=== PATIENT | male | born 1945 | race Caucasian/White ===

== ENCOUNTER 2017-06-14 13:13 | Emergency (ER) | payer OTHER, BC ==
[~2017-06-14] VITALS: Ht 188 cm; Wt 92.0 kg
[~2017-06-14 13:13] MED LIST: ATOR-24 PO; LISI-461 PO; SNM/25100 PO; TAMS0.4C38 PO
[2017-06-14 13:24] VITALS: TEMP 36.6; Ht 188 cm; Wt 92.0 kg
--- NOTE | 2017-06-14 14:54 | EMERGENCY ROOM VISIT NOTE ---
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 He states that he landed on his right knee. The patient denies any other injuries besides their knee. The patient reports swelling but denies bruising. There is pain over the patella. They rate the pain as mild and 5/ 10. The patient states they are able to walk on it with some pain. No numbness or tingling. No previous injuries to this knee. No ankle, foot or hip pain. REVIEW OF SYSTEMS: A 6 system review of systems was completed with positives and pertinent negatives listed in the HPI. ALLERGIES: No known drug allergies MEDICATIONS: See nursing notes PMH: Hypertension, hyperlipidemia SOCIAL HISTORY: The patient lives locally. He does not smoke PHYSICAL EXAM: Vital Signs: Reviewed Nurse's notes, vital signs stable. GENERAL : 71-year-old male, no acute distress, but appears in pain, well-developed, well -nourished. MENTAL STATUS: Alert, oriented to person place and time, and cooperative. MUSCULOSKELETAL: There is a superficial, nonbleeding abrasion to the anterior right knee. The right knee is minimally swollen. There is no ecchymosis. There is minimal joint effusion present. The patient is tender diffusely over the knee. There is no joint line tenderness. The patella does not subluxate. Range of motion is intact. Strength of the quads and hamstrings is 5/5. Sánchez's is negative. Desean's and Anterior Drawer tests are negative for obvious laxity. There is no obvious laxity with varus and valgus stressing. The foot and toes are warm and well-perfused. Dorsalis pedis pulse 2+. Sensation to pain and light touch is intact. Capillary refill less than 2 seconds. EMERGENCY DEPARTMENT COURSE: I examined the patient. X-rays of the right knee were reviewed by myself and read by radiology and reveal osteoarthritis and effusion but no fracture. The patient did not tolerate an immobilizer and was placed in an PADMINI wrap. He requested pain medication and was given a small prescription for norco. The patient should follow with and employer approved Worker's Compensation orthopedic doctor for further evaluation and management. He should return with worsening symptoms. Blood Pressure Screening: Patient was found to have a slightly elevated blood pressure due to circumstances. I do not believe that the patient requires hypertension monitoring. Medication Reconciliation: I attest that I have personally reviewed the patient' s current medication list. The patient was discharged home in good condition. The patient was also seen and examined by who agrees with the assessment and treatment plan. RIGHT KNEE 3 VIEWS HISTORY: 71 years-old Male acute right-sided knee pain status post fall. COMPARISON: None available TECHNIQUE: 3 views of the right knee. FINDINGS: Moderate to large right knee joint effusion is noted with increased density. Severe medial and patellofemoral osteoarthritis is noted with moderate to severe lateral compartment disease. Chondrocalcinosis is noted in the patellofemoral joint. There is no acute fracture or dislocation identified. Vascular calcifications are noted. IMPRESSION: 1. Moderate to large dense knee joint effusion without acute fracture or dislocation identified. 2. Severe medial and patellofemoral compartment osteoarthritis with patellofemoral chondrocalcinosis. 3. Peripheral vascular disease. Current/Historical Medications Scheduled Atorvastatin (Lipitor), 40 MG PO DAILY Levodopa/Carbidopa (Sinemet 25MG/100MG), 1 TAB PO TID Lisinopril (Zestril), 10 MG PO DAILY Scheduled PRN Hydrocodone/Acetaminophen 5MG/325MG (Franklin 5MG/325MG), 1 TABLET PO Q6 PRN for Pain Allergies Coded Allergies: No Known Allergies (Unverified , 06/14/17) Vital Signs Date Time Temp Pulse Resp B/P (MAP) Pulse Ox O2 Delivery O2 Flow Rate FiO2 06/14/17 15:38 73 16 161/93 98 Room Air 06/14/17 13:24 36.6 88 18 136/73 95 Room Air Departure Information Impression Primary Impression: Knee injury Additional Impressions: Osteoarthritis Work related injury Dispostion Home / Self-Care Condition GOOD Prescriptions Hydrocodone/Acetaminophen 5MG/325MG (Franklin 5MG/325MG) Tab 1 TABLET PO Q6 Y for Pain, #12 TAB For Initial Treatment Prov: Traci Montero PA-C 06/14/17 Referrals No Doctor, Assigned (PCP) Gabriel Mitchell MD Forms HOME CARE DOCUMENTATION FORM, IMPORTANT VISIT INFORMATION, Work Instructions Patient Instructions ED Meniscal Injury Knee Poss, My [facility] Additional Instructions Motrin 600 mg every 8 hours for moderate pain Franklin 1 tablet every 6 hours if needed for worse pain. Do not drink or drive while taking Franklin and do not take with Tylenol. Wear the brace when up and about. Contact and employer approved Worker's Compensation orthopedic doctor for further evaluation and management. Return with worsening symptoms Work Instructions Return To Work: 2 days Additional Work Instructions: Limited use of the right leg until cleared by orthopedics Problem Qualifiers Primary Impression: Knee injury Encounter type: initial encounter Laterality: right Qualified Codes: S89.91XA - Unspecified injury of right lower leg, initial encounter Additional Impressions: Osteoarthritis Osteoarthritis location: knee
--- NOTE | 2017-06-14 15:03 | DIAGNOSTIC IMAGING REPORT ---
RIGHT KNEE 3 VIEWS HISTORY: 71 years-old Male acute right-sided knee pain status post fall. COMPARISON: None available TECHNIQUE: 3 views of the right knee. FINDINGS: Moderate to large right knee joint effusion is noted with increased density. Severe medial and patellofemoral osteoarthritis is noted with moderate to severe lateral compartment disease. Chondrocalcinosis is noted in the patellofemoral joint. There is no acute fracture or dislocation identified. Vascular calcifications are noted. IMPRESSION: 1. Moderate to large dense knee joint effusion without acute fracture or dislocation identified. 2. Severe medial and patellofemoral compartment osteoarthritis with patellofemoral chondrocalcinosis. 3. Peripheral vascular disease. The above report was generated using voice recognition software. It may contain grammatical, syntax or spelling errors. Electronically signed by: Tahir Whalen M.D. 06/14/2017 3:01 PM Dictated Date/Time: 06/14/2017 2:58 PM
[2017-06-14] MEDS ORDERED: HYDR-5688 PO (15:23)
[2017-06-14 15:38] VITALS: BP 161/93; PULSE 73; O2SAT 98
--- NOTE | 2017-06-14 15:39 | EMERGENCY ROOM VISIT NOTE ---
ED Visit Note First contact with patient: 14:43 This Patient was discussed with the physician starch treating assistant, Rossy Montero PA-C. The pertinent historical and physical exam findings were confirmed. I agree with the studies ordered and with the interpretations of these studies. I agree with the disposition and care plan.
== END 2017-06-14 16:03 | disposition home or self-care (01) ==
LOC: C.EDB 13:13 → C.EDD 16:03
DX: S89.91XA Unspecified injury of right lower leg, initial encounter (principal); W01.0XXA Fall on same level from slipping, tripping and stumbling without subsequent striking against object, initial encounter; Y92.89 Other specified places as the place of occurrence of the external cause; I10 Essential (primary) hypertension; E78.5 Hyperlipidemia, unspecified; M19.90 Unspecified osteoarthritis, unspecified site; Z79.899 Other long term (current) drug therapy

== ENCOUNTER 2018-05-30 14:54 | Inpatient (IN) | payer OTHER, BC ==
[~2018-05-30] VITALS: Ht 190.5 cm; Wt 89.6 kg
[~2018-05-30 14:54] MED LIST changes: -TAMS0.4C38 PO
[2018-05-30] MEDS ORDERED: DIPHTHERIA/TETANUS/PERTUSSIS 0.5 ML SYR/VIAL IM. ONE (15:45)
[2018-05-30] MEDS ORDERED: OPTIRAY 320 IV PRN (15:45)
[2018-05-30 15:46] LABS: ISTAT CREATININE 1.1 mg/dl (0.6-1.3); ISTAT IONIZED CALCIUM 1.13 mmol/l (1.12-1.32); ISTAT POTASSIUM 4.1 mEq/L (3.3-5.0)
[2018-05-30 15:58] LABS: BASO % 0.1 %; BASO ABS # 0.01 K/uL (0-0.2); EOS ABS # 0.16 K/uL (0-0.5); HEMATOCRIT 35.6 % (42-52); HEMOGLOBIN 11.5 g/dL (14.0-18.0); IG# 0.16 K/uL (0.00-0.02); LYMPH % 15.6 %; LYMPH ABS # 1.25 K/uL (1.2-3.4); MEAN CELL VOLUME 88.3 fL (80-100); MEAN CORPUSCULAR HEMOGLOBIN 28.5 pg (25-34); MEAN CORPUSCULAR HGB CONC 32.3 g/dl (32-36); MEAN PLATELET VOLUME 11.8 fL (7.4-10.4); MONO % 3.9 %; MONO ABS # 0.31 K/uL (0.11-0.59); NEUT % 76.4 %; NEUT ABS # 6.13 K/uL (1.4-6.5); PLATELET COUNT 163 K/uL (130-400); RED CELL DISTRIBUTION WIDTH CV 14.7 % (11.5-14.5); RED CELL DISTRIBUTION WIDTH SD 47.6 fL (36.4-46.3); WHITE BLOOD COUNT 8.02 K/uL (4.8-10.8)
[2018-05-30 16:04] LABS: INR 1.1 (0.9-1.1); PTT PATIENT 26.1 SECONDS (21.0-31.0)
[2018-05-30 16:13] LABS: ALBUMIN 3.3 gm/dl (3.4-5.0); ALKALINE PHOSPHATASE 97 U/L (45-117); ALT/SGPT 14 U/L (12-78); AST/SGOT 25 U/L (15-37); BLOOD UREA NITROGEN 30 mg/dl (7-18); CARBON DIOXIDE 23 mmol/L (21-32); CKMB 3.9 ng/ml (0.5-3.6); CREATININE 1.17 mg/dl (0.60-1.40); GLUCOSE 162 mg/dl (70-99); SODIUM 141 mmol/L (136-145)
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
--- NOTE | 2018-05-30 16:57 | DIAGNOSTIC IMAGING REPORT ---
CT (CHEST) THORAX WITH CT DOSE: HISTORY: Trauma. Pain. Trauma TECHNIQUE: Multiaxial CT images of the chest were performed following the intravenous administration of contrast. A dose lowering technique was utilized adhering to the principles of ALARA. COMPARISON: None. FINDINGS: The lungs are clear. The mediastinal vascular structures are within normal limits. No mediastinal or hilar lymphadenopathy. No pleural effusion or pneumothorax. Limited views of the upper abdomen demonstrate a normal liver and spleen. IMPRESSION: . 1. Slightly depressed fracture superior sternum. 2. Study is otherwise negative. The above report was generated using voice recognition software. It may contain grammatical, syntax or spelling errors. Electronically signed by: Stanislav Elias M.D. 05/30/2018 4:56 PM Dictated Date/Time: 05/30/2018 4:53 PM
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
[2018-05-30] MEDS ORDERED: RASA1TAB4 PO (17:21)
[2018-05-30] MEDS ORDERED: TAMS0.4C38 PO (17:21)
[2018-05-30] MEDS ORDERED: MoRPHine SULFATE 4 MG/ML 1 ML CARP\\VIAL IV STA (18:26)
[2018-05-30] MEDS ORDERED: ONDANSETRON INJ 2 MG/ML 2 ML VIAL IV STA (18:26)
[2018-05-30] MEDS ORDERED: MoRPHine SULFATE 2 MG/ML CARP ONE (18:40)
[2018-05-30] MEDS ORDERED: IV FLUIDS COMPLETED PRN (18:45)
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
[2018-05-30] MEDS ORDERED: SODIUM CHLORIDE 0.9% 1000ML 1,000 ML IV SCH (19:20)
[2018-05-30] MEDS ORDERED: GABAPENTIN 600 MG TAB PO SCH (19:30)
[2018-05-30 19:55] VITALS: BP 124/70; PULSE 91; TEMP 37.1; O2SAT 94; Ht 190.5 cm; Wt 89.6 kg
[2018-05-30] MEDS ORDERED: LORAZEPAM 2 MG/ML 1 ML VIAL IV PRN (20:00)
[2018-05-30] MEDS ORDERED: MoRPHine SULFATE 2 MG/ML CARP IV PRN (20:00)
[2018-05-30] MEDS ORDERED: LORAZEPAM 0.5 MG TAB PO PRN (20:00)
[2018-05-30] MEDS ORDERED: GABAPENTIN 1200MG LOADING DOSE PO ONE (20:00)
--- NOTE | 2018-05-30 20:15 | Progress Note ---
Progress Note Date of Service May 30, 2018. Progress Note ATTENDING ADDENDUM care coordinated with TATI Kinney. notes please refer to her notes for full details, I agree with her notes patient seen and examined, records reviewed by myself as well on exam, patient seen resting in bed, comfortable reports pain on the right hip/buttock area, also has mild sternal pain otherwise, denies other pain no chest pain, dyspnea, palpitations, dizziness no abdominal pain no other symptoms VS noted and reviewed oriented x 2 , not in distress, speaks in sentences with no effort nor accessory muscle use normal rate, regular rhythm, no murmurs clear breath sounds bilaterally, no rales/wheezes non distended, soft, nontender no bipedal edema, erythema, warmth no neuro deficits Hg 11.[address] abdomen: polypoid mass in the bladder ASSESSMENT/PLAN> SYNCOPE R/O PROGRESSION OF AORTIC STENOSIS R/O ARRHYTHMIA R/O SEIZURES R/O CVA Echo, telemetry, EEG, MRI Brain ordered MASSIVE HEMATURIA POLYPOID BLADDER MASS H&H q6h discussed case with Dr. Steel who will evaluate the patient this evening, appreciate the recommendations R/O RIGHT HIP FRACTURE, LEFT RADIAL FRACTURE CT ordered other diagnoses and plan of care as per TATI Kinney notes Román Grewal MD
[2018-05-30 20:19] LABS: HEMATOCRIT 36.1 % (42-52); HEMOGLOBIN 11.8 g/dL (14.0-18.0)
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
--- NOTE | 2018-05-30 21:05 | DIAGNOSTIC IMAGING REPORT ---
R LOWER EXTREMITY WITHOUT CLINICAL HISTORY: 72 years-old Male presenting with r/o femoral fracture. TECHNIQUE: Multidetector CT of the right femur was performed without the use of intravenous contrast. IV contrast: None. A dose lowering technique was used consistent with the principles of ALARA (as low as reasonably achievable). COMPARISON: Plain radiographs of the right hip performed earlier today. CT DOSE (mGy.cm): The estimated cumulative dose is 895.24 mGy.cm. FINDINGS: Travel Consultant topogram: Tricompartmental degenerative changes of the knees. Excreted contrast in the urinary bladder. A Fishman catheter is noted in the urinary bladder. Prostatomegaly evident. Polypoid bladder mass again noted. Osteophytosis at the right hip. Joint space is largely preserved. No deformity of the femoral head. The right femoral neck is intact without evidence of fracture. The remainder of the femur is also intact. Advanced tricompartmental degenerative changes of the right knee. Significant joint space loss is also noted in addition to exuberant osteophytosis. Knee joint effusion is present. Soft tissues demonstrate atherosclerosis. IMPRESSION: 1. No acute osseous injury of the right femur right femoral neck. 2. Please see separately dictated CT of the abdomen and pelvis for findings related to the bilateral sacral alar fractures, which are not included in the field of view of the current imaging. 3. Advanced tricompartmental degenerative changes of the right knee. 4. Mild degenerative changes of the right hip. 5. Redemonstration of the suspicious polypoid bladder mass. Electronically signed by: Benedict Myers M.D. 05/30/2018 9:03 PM Dictated Date/Time: 05/30/2018 8:59 PM
[2018-05-30] MEDS: CARBIDOPA/LEVODOPA 25/100MG TAB PO SCH (21:27)
[2018-05-30] MEDS: D5W AND NSS 1,000 ML IV SCH (21:29)
[2018-05-30] MEDS: ACETAMINOPHEN 325 MG TAB PO PRN (21:35)
[2018-05-30] MEDS ORDERED: MoRPHine SULFATE 2 MG/ML CARP IV ONE (21:57)
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
--- NOTE | 2018-05-30 22:19 | DIAGNOSTIC IMAGING REPORT ---
L UPPER EXTREMITY WITHOUT CLINICAL HISTORY: 72 years-old Male presenting with RECOMMEND CT OF LEFT RADIAL NECK PER X-RAY REPORT. TECHNIQUE: Multidetector CT of the elbow was performed without the use of intravenous contrast. IV contrast: None. A dose lowering technique was used consistent with the principles of ALARA (as low as reasonably achievable). COMPARISON: Plain radiographs of elbow performed earlier today. CT DOSE (mGy.cm): The estimated cumulative dose is 895.24. FINDINGS: Play Therapist topogram: Unremarkable. Osteophytosis involving both the medial and lateral aspects of the elbow joint, which is congruent. There is also joint space loss in the radiocapitellar articulation. Degenerative changes likely account for irregularity of the radial neck. No convincing evidence of a fracture plane. No elbow joint effusion. Multiple loose bodies evident in the olecranon fossa, further evidence of degenerative change. IMPRESSION: 1. Advanced degenerative changes of the elbow joint, including the presence of loose bodies posteriorly. 2. No acute osseous injury. Electronically signed by: Benedict Myers M.D. 05/30/2018 10:18 PM Dictated Date/Time: 05/30/2018 10:16 PM
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
[2018-05-30 23:16] VITALS: O2SAT 94
[2018-05-30 23:43] VITALS: BP 121/72; PULSE 84; TEMP 36.7; O2SAT 92
[2018-05-31] VITALS (9 sets, daily range): BP systolic 95–120; BP diastolic 48–65; PULSE 74–91; TEMP 36.6–37.6; O2SAT 91–97
[2018-05-31 02:02] LABS: HEMOGLOBIN 10.6 g/dL (14.0-18.0)
[2018-05-31] MEDS: GABAPENTIN 600MG Q6H DOSE PO SCH ×2 (03:24→09:56)
[2018-05-31] MEDS ORDERED: GABAPENTIN 600MG Q6H DOSE PO SCH (06:00)
[2018-05-31] MEDS ORDERED: CIPROFLOXACIN 400MG / 200ML D5W IV SCH (06:00)
[2018-05-31] MEDS ORDERED: PROCHLORPERAZINE INJ 5 MG in SYRINGE 4 ML IV PRN (06:30)
--- NOTE | 2018-05-31 07:20 | DIAGNOSTIC IMAGING REPORT ---
CAROTID ARTERY ULTRASOUND CLINICAL HISTORY: Syncope. COMPARISON STUDY: None. TECHNIQUE: Real-time, grayscale, and color Doppler sonography of the carotid and vertebral arteries was performed. Images were viewed in the transverse and longitudinal planes. FINDINGS: There is moderate atherosclerotic plaque. Velocity measurements are listed below. COMMON CAROTID PEAK SYSTOLIC VELOCITY (CM/S): RIGHT 121 LEFT 102 ICA PEAK SYSTOLIC VELOCITY (CM/S): RIGHT 60 LEFT 80 Systolic ratios between the internal to common carotid arteries are normal. Antegrade flow is seen in the vertebral arteries. The external carotid arteries are patent. Blood pressure in the right arm measured 128/71. Blood pressure in the left arm measured 118/77. IMPRESSION: No evidence for a hemodynamically significant stenosis. Electronically signed by: Fan Chambers M.D. 05/31/2018 7:19 AM Dictated Date/Time: 05/31/2018 7:18 AM
[2018-05-31] MEDS: MoRPHine SULFATE 4 MG/ML 1 ML CARP\\VIAL IV PRN ×2 (07:30→14:00)
[2018-05-31 08:04] LABS: BASO % 0.1 %; BASO ABS # 0.01 K/uL (0-0.2); EOS % 0.3 %; EOS ABS # 0.02 K/uL (0-0.5); HEMATOCRIT 32.7 % (42-52); HEMOGLOBIN 10.9 g/dL (14.0-18.0); IG# 0.02 K/uL (0.00-0.02); LYMPH % 10.3 %; MEAN CELL VOLUME 88.1 fL (80-100); MEAN CORPUSCULAR HEMOGLOBIN 29.4 pg (25-34); MEAN CORPUSCULAR HGB CONC 33.3 g/dl (32-36); MEAN PLATELET VOLUME 10.8 fL (7.4-10.4); MONO % 8.2 %; MONO ABS # 0.64 K/uL (0.11-0.59); NEUT % 80.8 %; NEUT ABS # 6.29 K/uL (1.4-6.5); PLATELET COUNT 128 K/uL (130-400); RED CELL DISTRIBUTION WIDTH SD 48.5 fL (36.4-46.3); WHITE BLOOD COUNT 7.78 K/uL (4.8-10.8)
[2018-05-31 08:35] LABS: CALCIUM 7.9 mg/dl (8.5-10.1); CREATININE 0.93 mg/dl (0.60-1.40); POTASSIUM 4.2 mmol/L (3.5-5.1); TOTAL PROTEIN 5.6 gm/dl (6.4-8.2)
[2018-05-31] MEDS: TAMSULOSIN HCL 0.4 MG CAP PO SCH (08:40)
[2018-05-31] MEDS: CARBIDOPA/LEVODOPA 25/100MG TAB PO SCH ×4 (08:40→21:14)
[2018-05-31] MEDS: ATORVASTATIN 40 MG TAB PO SCH (08:40)
[2018-05-31] MEDS: D5W AND NSS 1,000 ML IV SCH (08:41)
--- NOTE | 2018-05-31 08:54 | ECHOCARDIOGRAM REPORT ---
*NOTICE TO RECEIVING LIBERTARIAN AGENCY This information is strictly Confidential and protected under [place] law. [place] law prohibits you from making any further disclosure of this information unless further disclosure is expressly permitted by the written consent of the person to whom it pertains or is authorized by law. A general authorization for the release of medical or other information is not sufficient for this purpose. Hospital accepts no responsibility if the information is made available to any other person, INCLUDING THE PATIENT. Interpretation Summary * Name: LAKEISHA HUTTON Study Date: 05/31/2018 07:00 AM BP: 107/61 mmHg * Patient Location: C.2T\S\S239\S\2 HR: 81 * : 1945 (M/d/yyy) Gender: Male Height: 75 in * Age: 72 yrs Ethnicity: [place] Weight: 199 lb * Ordering Physician: Alisha Galarza * Referring Physician: Self, Referred * Performed By: Traci Talbot RDCS * * Reason For Study: SYNCOPE * BSA: 2.2 m2 * The study was technically limited. * There is no comparison study available. * -- Conclusions -- * Ejection Fraction = 65-70%. * There is mild concentric left ventricular hypertrophy. * The aortic valve is not well visualized. * The aortic valve is moderately calcified. * Moderate valvular aortic stenosis. Procedure Details * A contrast injection of Definity was performed to improve assessment of LV function. * Contrast was injected into an intravenous site in the left arm. * One vial of Definity ultrasound contrast was diluted in normal saline to a total volume of 10 ml. A total of '2' ml of solution was administered during imaging. * Lot # [id number] of Definity utilized for procedure. * Expiration date MAY 12. * The attending nurse who injected the contrast agent was ARETHA Fernandez RN. * A complete two-dimensional transthoracic echocardiogram was performed (2D, M-mode, Doppler and color flow Doppler). Left Ventricle * The left ventricle is normal in size. * The left ventricular apex is not well visualized. * There is mild concentric left ventricular hypertrophy. * Left ventricular systolic function is normal. * Ejection Fraction = 65-70%. * The left ventricular wall motion is normal. Right Ventricle * The right ventricle is normal size. * The right ventricular systolic function is normal as assessed by tricuspid annular plane systolic excursion (TAPSE) (normal >1.5 cm). Atria * The left atrial size is normal. * Right atrial size is normal. * There is no evidence of atrial septal defect, but resolution does not allow assessment for a patent foramen ovale. Mitral Valve * There is moderate mitral annular calcification. * There is no mitral valve stenosis. * Significant mitral regurgitation is absent. Tricuspid Valve * The tricuspid valve is normal. * There is no tricuspid stenosis. * There is trace tricuspid regurgitation. * The estimated systolic pulmonary arterial pressure is 34 mmHg. * Doppler findings do not suggest pulmonary hypertension. Aortic Valve * The aortic valve is not well visualized. * The aortic valve is moderately calcified. * Moderate valvular aortic stenosis. * There is no significant aortic regurgitation. Pulmonic Valve * The pulmonary valve is not well seen, but the Doppler examination is normal without significant regurgitation or stenosis. Great Vessels * The aortic root is not well visualized. Pericardium/Pleural * There is no pericardial effusion. Great Vessels * Normal inferior vena cava diameter and respiratory variation suggests normal central venous pressure. Left Ventricular Diastolic Function * Grade I diastolic dysfunction, (abnormal relaxation pattern). MMode 2D Measurements and Calculations IVSd 1.2 cm IVSs 1.8 cm LVIDd 4.9 cm LVIDs 3.1 cm LVPWd 1.2 cm LVPWs 1.7 cm IVS/LVPW 0.94 FS 36.8 % EDV(Teich) 113.8 ml ESV(Teich) 38.1 ml EF(Teich) 66.5 % EDV(cubed) 118.9 ml ESV(cubed) 30.0 ml EF(cubed) 74.8 % % IVS thick 54.8 % % LVPW thick 37.4 % LV mass(C)d 230.2 grams LV mass(C)dI 105.1 grams/m\S\2 LV mass(C)s 218.6 grams LV mass(C)sI 99.8 grams/m\S\2 SV(Teich) 75.6 ml SI(Teich) 34.5 ml/m\S\2 SV(cubed) 88.9 ml SI(cubed) 40.6 ml/m\S\2 Ao root diam 3.4 cm Ao root area 9.2 cm\S\2 LA dimension 3.9 cm LA/Ao 1.1 LVOT diam 2.0 cm LVOT area 3.1 cm\S\2 LVAd ap4 38.2 cm\S\2 LVLd ap4 9.7 cm EDV(MOD-sp4) 124.4 ml EDV(sp4-el) 127.6 ml LVAs ap4 20.5 cm\S\2 LVLs ap4 7.9 cm ESV(MOD-sp4) 46.8 ml ESV(sp4-el) 45.2 ml EF(MOD-sp4) 62.4 % EF(sp4-el) 64.6 % LVAd ap2 35.0 cm\S\2 LVLd ap2 9.0 cm EDV(MOD-sp2) 108.6 ml EDV(sp2-el) 115.3 ml LVAs ap2 18.7 cm\S\2 LVLs ap2 7.1 cm ESV(MOD-sp2) 42.3 ml ESV(sp2-el) 41.5 ml EF(MOD-sp2) 61.0 % EF(sp2-el) 64.0 % LVLd %diff -7.33 % EDV(MOD-bp) 117.2 ml LVLs %diff -10.77 % ESV(MOD-bp) 45.0 ml EF(MOD-bp) 61.6 % SV(MOD-sp4) 77.6 ml SI(MOD-sp4) 35.5 ml/m\S\2 SV(MOD-sp2) 66.2 ml SI(MOD-sp2) 30.2 ml/m\S\2 SV(MOD-bp) 72.2 ml SI(MOD-bp) 33.0 ml/m\S\2 SV(sp4-el) 82.4 ml SI(sp4-el) 37.6 ml/m\S\2 SV(sp2-el) 73.7 ml SI(sp2-el) 33.7 ml/m\S\2 Doppler Measurements and Calculations MV E max danita 92.2 cm/sec MV A max danita 132.4 cm/sec MV E/A 0.70 MV dec time 0.25 sec Ao V2 max 345.5 cm/sec Ao max PG 47.8 mmHg Ao max PG (full) 42.2 mmHg Ao V2 mean 236.0 cm/sec Ao mean PG 25.3 mmHg Ao mean PG (full) 22.2 mmHg Ao V2 VTI 69.5 cm ABDULAZIZ(I,A) 1.1 cm\S\2 ABDULAZIZ(I,D) 1.1 cm\S\2 ABDULAZIZ(V,A) 1.1 cm\S\2 ABDULAZIZ(V,D) 1.1 cm\S\2 LV V1 max PG 5.6 mmHg LV V1 mean PG 3.1 mmHg LV V1 max 118.4 cm/sec LV V1 mean 81.0 cm/sec LV V1 VTI 25.5 cm SV(Ao) 641.3 ml SI(Ao) 292.9 ml/m\S\2 SV(LVOT) 78.2 ml SI(LVOT) 35.7 ml/m\S\2 TR max danita 281.0 cm/sec
[2018-05-31] MEDS ORDERED: LISINOPRIL 10 MG TAB PO SCH (09:00)
[2018-05-31] MEDS ORDERED: METOPROLOL SUCC 25MG EXT REL TAB PO ONE (11:00)
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
--- NOTE | 2018-05-31 13:46 | Urology Progress Note ---
Progress Note Date of Service May 31, 2018. Subjective Pt evaluation today including: conversation w/ patient, conversation w/ family , physical exam, lab review, review of studies, conversation w/ [employer] iam consultant Pain: ongoing back pain Voiding: yen catheter in place Pt with significant hematuria with clot Spoke with hospitalist and cleared for Turbt by cardiology and ortho says ok for dorsal lithotomy position Pt with ct that shows presumed bladder tumor Objective Vital Signs Date Time Temp Pulse Resp B/P (MAP) Pulse Ox O2 Delivery O2 Flow Rate FiO2 05/31/18 11:27 36.8 74 18 120/65 (83) 97 05/31/18 08:00 93 Room Air 05/31/18 06:44 36.8 79 16 107/61 (76) 93 Room Air 05/31/18 03:07 36.6 83 16 107/61 (76) 94 Room Air 05/30/18 23:43 36.7 84 18 121/72 (88) 92 Room Air 05/30/18 23:16 94 Room Air 05/30/18 19:55 37.1 91 16 124/70 94 Room Air 05/30/18 18:27 87 19 151/79 98 Room Air 05/30/18 16:56 92 21 173/93 94 Room Air 05/30/18 16:32 94 Room Air 05/30/18 16:03 89 19 160/89 95 Room Air 05/30/18 15:14 36.7 94 18 147/85 97 Room Air 05/30/18 15:09 100 05/30/18 15:06 97 Room Air Laboratory Results Last 24 Hours Test 05/30/18 14:10 05/30/18 15:15 05/30/18 15:36 05/30/18 15:39 White Blood Count 8.02 K/uL Red Blood Count 4.03 M/uL Hemoglobin 11.5 g/dL Hematocrit 35.6 % Mean Corpuscular Volume 88.3 fL Mean Corpuscular Hemoglobin 28.5 pg Mean Corpuscular Hemoglobin Concent 32.3 g/dl Platelet Count 163 K/uL Mean Platelet Volume 11.8 fL Neutrophils (%) (Auto) 76.4 % Lymphocytes (%) (Auto) 15.6 % Monocytes (%) (Auto) 3.9 % Eosinophils (%) (Auto) 2.0 % Basophils (%) (Auto) 0.1 % Neutrophils # (Auto) 6.13 K/uL Lymphocytes # (Auto) 1.25 K/uL Monocytes # (Auto) 0.31 K/uL Eosinophils # (Auto) 0.16 K/uL Basophils # (Auto) 0.01 K/uL RDW Standard Deviation 47.6 fL RDW Coefficient of Variation 14.7 % Immature Granulocyte % (Auto) 2.0 % Immature Granulocyte # (Auto) 0.16 K/uL Prothrombin Time 11.2 SECONDS Prothromb Time International Ratio 1.1 Activated Partial Thromboplast Time 26.1 SECONDS Partial Thromboplastin Ratio 1.0 Sodium Level 141 mmol/L Potassium Level 4.0 mmol/L Chloride Level 110 mmol/L Carbon Dioxide Level 23 mmol/L Anion Gap 8.0 mmol/L 18.0 mmol/L Blood Urea Nitrogen 30 mg/dl Creatinine 1.17 mg/dl Est Creatinine Clear Calc Drug Dose 66.2 ml/min Estimated GFR () 70.8 Estimated GFR (Non- 61.1 BUN/Creatinine Ratio 25.2 Random Glucose 162 mg/dl Calcium Level 8.0 mg/dl Total Bilirubin 1.0 mg/dl Direct Bilirubin 0.2 mg/dl Aspartate Amino Transf (AST/SGOT) 25 U/L Alanine Aminotransferase (ALT/SGPT) 14 U/L Alkaline Phosphatase 97 U/L Total Creatine Kinase 262 U/L Creatine Kinase MB 3.9 ng/ml Creatine Kinase MB Ratio 1.5 Troponin I < 0.015 ng/ml Total Protein 6.0 gm/dl Albumin 3.3 gm/dl Urine Color RED Urine Appearance CLOUDY Urine pH 6.5 Urine Specific [place] 1.025 Urine Protein 3+ Urine Glucose (UA) NEG Urine Ketones TRACE Urine Occult Blood 3+ Urine Nitrite NEG Urine Bilirubin NEG Urine Urobilinogen NEG Urine Leukocyte Esterase NEG Urine RBC >30 /hpf Urine WBC 1-5 /hpf Urine Epithelial Cells 5-10 /lpf Urine Bacteria NEG Bedside Hemoglobin 11.9 g/dl Bedside Hematocrit 35 % Bedside Sodium 143 mEq/L Bedside Potassium 4.1 mEq/L Bedside Chloride 105 mEq/L Bedside Total CO2 25 mEq/l Bedside Blood Urea Nitrogen 28 mg/dl Bedside Creatinine 1.1 mg/dl Bedside Glucose (other) 109 mg/dl Bedside Ionized Calcium (Rosa) 1.13 mmol/l Bedside Glucose 106 mg/dl Test 05/30/18 20:01 05/31/18 01:51 05/31/18 07:52 Hemoglobin 11.8 g/dL 10.6 g/dL 10.9 g/dL Hematocrit 36.1 % 33.0 % 32.7 % Troponin I < 0.015 ng/ml 0.015 ng/ml White Blood Count 7.78 K/uL Red Blood Count 3.71 M/uL Mean Corpuscular Volume 88.1 fL Mean Corpuscular Hemoglobin 29.4 pg Mean Corpuscular Hemoglobin Concent 33.3 g/dl Platelet Count 128 K/uL Mean Platelet Volume 10.8 fL Neutrophils (%) (Auto) 80.8 % Lymphocytes (%) (Auto) 10.3 % Monocytes (%) (Auto) 8.2 % Eosinophils (%) (Auto) 0.3 % Basophils (%) (Auto) 0.1 % Neutrophils # (Auto) 6.29 K/uL Lymphocytes # (Auto) 0.80 K/uL Monocytes # (Auto) 0.64 K/uL Eosinophils # (Auto) 0.02 K/uL Basophils # (Auto) 0.01 K/uL RDW Standard Deviation 48.5 fL RDW Coefficient of Variation 15.0 % Immature Granulocyte % (Auto) 0.3 % Immature Granulocyte # (Auto) 0.02 K/uL Sodium Level 141 mmol/L Potassium Level 4.2 mmol/L Chloride Level 108 mmol/L Carbon Dioxide Level 27 mmol/L Anion Gap 6.0 mmol/L Blood Urea Nitrogen 21 mg/dl Creatinine 0.93 mg/dl Est Creatinine Clear Calc Drug Dose 83.3 ml/min Estimated GFR () 93.4 Estimated GFR (Non- 80.6 BUN/Creatinine Ratio 22.9 Random Glucose 123 mg/dl Calcium Level 7.9 mg/dl Total Bilirubin 1.9 mg/dl Aspartate Amino Transf (AST/SGOT) 26 U/L Alanine Aminotransferase (ALT/SGPT) 17 U/L Alkaline Phosphatase 64 U/L Total Protein 5.6 gm/dl Albumin 3.0 gm/dl Globulin 2.6 gm/dl Albumin/Globulin Ratio 1.2 Assessment and Plan given drop in hct and ongoing significant hematuria with clot do not see advantage to delaying cysto TURBT Discussed with Dr. Lee who agrees to do cysto clot evacuation and probable TURBT this pm consent obtained
[2018-05-31] MEDS ORDERED: ONDANSETRON INJ 2 MG/ML 2 ML VIAL ONE (14:18)
[2018-05-31] MEDS ORDERED: LIDOCAINE HCL 2% 2 ML VIAL (20MG/ML) ONE (14:18)
[2018-05-31] MEDS ORDERED: PROPOFOL IV EMULSION 10 MG/ML 20 ML VIAL ONE (14:18)
[2018-05-31] MEDS ORDERED: FENTANYL CITRATE INJ 50 MCG/1 ML 2 ML VIAL ONE (14:18)
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
--- NOTE | 2018-05-31 15:11 | History & Physical Bridge Note ---
H&P Re-Evaluation Bridge Note: I have examined the patient, reviewed the History & Physical and in the interval since the performance of the History & Physical I have noted the following changes of clinical significance: No changes noted
[2018-05-31] MEDS ORDERED: LACTATED RINGER'S 1000ML 1,000 ML IV SCH (15:15)
[2018-05-31] MEDS ORDERED: NURSING VERBAL MED ORDER ONE (15:15)
[2018-05-31] MEDS ORDERED: PHENYLEPHRINE HCL INJ 10 MG/ML VIAL ONE (16:16)
[2018-05-31] MEDS ORDERED: SODIUM CHLORIDE 0.9% INJ 10 ML VIAL ONE (16:16)
[2018-05-31] MEDS ORDERED: ONDANSETRON INJ 2 MG/ML 2 ML VIAL IV PRN (16:30)
[2018-05-31] MEDS ORDERED: ATROPINE SULFATE 0.1 MG/ML 5ML SYR IV PRN (16:30)
[2018-05-31] MEDS ORDERED: EpHEDrine SULFATE INJ 50 MG/ML AMP IV PRN (16:30)
[2018-05-31] MEDS ORDERED: FENTANYL CITRATE INJ 50 MCG/1 ML 2 ML VIAL IV PRN (16:30)
--- NOTE | 2018-05-31 16:31 | [facility] Operative Report ---
Operative Report Operative Date May 31, 2018. Pre-Operative Diagnosis Hematuria Post-Operative Diagnosis Bladder tumor Procedure(s) Performed Cystoscopy, TURBT large Surgeon Dr. 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 Upon arrival he received appropriate preoperative antibiotics in the form of ciprofloxacin. Adequate general anesthesia was achieved, the patient was placed dorsal lithotomy position where he was sterilely prepped and draped in standard fashion. I began the case with passing a 27 Macedonian resectoscope with 30 lens and visual drop machine operator. Inspection revealed no evidence of stricture disease other abnormalities of the urethra. He has a noticeably large prostate, but I was able to navigate beyond this into the bladder. Upon entering the bladder, became readily apparent that he had a significant amount of clot within the bladder. Irrigated him free of clot. After clearing the bladder, I was able to identify a large, papillary appearing bladder tumor arising from the left lateral wall. I had estimate this was 5 cm plus in dimension. As I inspected the lateral wall, it appears to have a smaller stalk to which it connects to the bladder. There was some active bleeding from the tumor itself. I exchanged the visual obturator for resecting element, choosing a loop electrode. Began to sequentially resect the tumor starting at the medial margin working my way laterally before completing it from lateral to medial. His care to avoid deep resection. After entirely freeing the bladder visible tumor, obtain meticulous hemostasis by point cauterizing areas at the base of the tumor. I irrigated all bladder tumor chips out of the bladder and passed them off the table as a specimen labeled bladder tumor. Obtain meticulous hemostasis before withdrawing the cystoscope. I did elect to place a 20 Macedonian Fishman catheter at the conclusion of the case, the patient was subsequently extubated and reversed from anesthesia and taken to the PACU in stable condition. I attest to the content of the Intraoperative Record and any orders documented therein. Any exceptions are noted below.
--- NOTE | 2018-05-31 17:16 | Anesthesiology Progress Note ---
Anesthesia Post Op Note Date & Time May 31, 2018 at 17:16 Vital Signs Pain Intensity: 0 Vital Signs Past 12 Hours Date Time Temp Pulse Resp B/P (MAP) Pulse Ox O2 Delivery O2 Flow Rate FiO2 05/31/18 17:03 83 16 93/53 95 05/31/18 17:03 83 16 05/31/18 17:02 36.8 85 16 93/53 (67) 95 Nasal Cannula 2 05/31/18 17:01 82/38 05/31/18 16:58 79 20 98 05/31/18 16:58 80 20 05/31/18 16:57 81 19 99 05/31/18 16:57 81 19 05/31/18 16:57 81 19 05/31/18 16:57 81 19 99 05/31/18 16:55 93/57 05/31/18 16:55 93/57 05/31/18 16:52 80 19 100 05/31/18 16:52 80 19 100 05/31/18 16:52 80 19 05/31/18 16:52 80 19 05/31/18 16:51 80 17 100 05/31/18 16:51 79 17 05/31/18 16:50 96/58 05/31/18 16:46 81 18 05/31/18 16:46 81 18 100 05/31/18 16:45 108/60 05/31/18 16:41 81 17 05/31/18 16:41 36.6 82 19 94/54 (71) 97 Oxymask 10 05/31/18 16:41 80 17 94/54 99 05/31/18 14:30 37.4 87 18 109/70 (83) 92 Room Air 05/31/18 11:27 36.8 74 18 120/65 (83) 97 05/31/18 08:00 93 Room Air 05/31/18 06:44 36.8 79 16 107/61 (76) 93 Room Air Notes Mental Status: alert / awake / arousable, participated in evaluation Pt Amnestic to Procedure: Yes Nausea / Vomiting: adequately controlled Pain: adequately controlled Airway Patency, RR, SpO2: stable & adequate BP & HR: stable & adequate Hydration State: stable & adequate Anesthetic Complications: no major complications apparent
[2018-05-31] MEDS: GABAPENTIN 600MG Q8H DOSE PO SCH (18:07)
[2018-05-31 19:38] LABS: HEMATOCRIT 33.1 % (42-52); HEMOGLOBIN 10.3 g/dL (14.0-18.0)
[2018-05-31] MEDS ORDERED: GABAPENTIN 600MG Q8H DOSE PO SCH (22:00)
[2018-05-31 22:20] LABS: HEMOGLOBIN 9.9 g/dL (14.0-18.0)
[2018-06-01] MEDS: D5W AND NSS 1,000 ML IV SCH ×2 (01:06→11:48)
[2018-06-01] MEDS: GABAPENTIN 600MG Q8H DOSE PO SCH ×2 (02:06→10:49)
[2018-06-01 03:22] VITALS: BP 100/56; PULSE 87; TEMP 37.7; O2SAT 94
[2018-06-01 07:21] VITALS: BP 100/55; PULSE 84; TEMP 37.9; O2SAT 94
[2018-06-01] MEDS: ACETAMINOPHEN 325 MG TAB PO PRN (07:43)
[2018-06-01] MEDS: METOPROLOL SUCC 25MG EXT REL TAB PO SCH (07:43)
[2018-06-01] MEDS: ATORVASTATIN 40 MG TAB PO SCH (07:43)
[2018-06-01] MEDS: CARBIDOPA/LEVODOPA 25/100MG TAB PO SCH ×4 (07:44→21:22)
[2018-06-01] MEDS: TAMSULOSIN HCL 0.4 MG CAP PO SCH (07:44)
--- NOTE | 2018-06-01 08:07 | Anesthesiology Progress Note ---
Anesthesia Post Op Note Date & Time Jun 01, 2018 at 08:06 Vital Signs Pain Intensity: 0 Vital Signs Past 12 Hours Date Time Temp Pulse Resp B/P (MAP) Pulse Ox O2 Delivery O2 Flow Rate FiO2 06/01/18 07:21 37.9 84 19 100/55 (70) 94 Nasal Cannula 1.0 06/01/18 03:22 37.7 87 21 100/56 (71) 94 Room Air 05/31/18 23:12 37.6 90 17 100/48 (65) 92 Room Air 05/31/18 20:20 37.0 85 18 95/52 (66) 95 Room Air Notes Mental Status: alert / awake / arousable, participated in evaluation Pt Amnestic to Procedure: Yes Nausea / Vomiting: adequately controlled Pain: adequately controlled Airway Patency, RR, SpO2: stable & adequate BP & HR: stable & adequate Hydration State: stable & adequate Anesthetic Complications: no major complications apparent
[2018-06-01 08:15] LABS: BASO % 0.1 %; BASO ABS # 0.01 K/uL (0-0.2); EOS % 0.9 %; EOS ABS # 0.07 K/uL (0-0.5); HEMATOCRIT 30.3 % (42-52); HEMOGLOBIN 9.8 g/dL (14.0-18.0); IG# 0.03 K/uL (0.00-0.02); LYMPH % 10.4 %; LYMPH ABS # 0.82 K/uL (1.2-3.4); MEAN CELL VOLUME 88.9 fL (80-100); MEAN CORPUSCULAR HEMOGLOBIN 28.7 pg (25-34); MEAN CORPUSCULAR HGB CONC 32.3 g/dl (32-36); MEAN PLATELET VOLUME 10.2 fL (7.4-10.4); MONO % 9.3 %; MONO ABS # 0.73 K/uL (0.11-0.59); NEUT % 78.9 %; NEUT ABS # 6.23 K/uL (1.4-6.5); PLATELET COUNT 103 K/uL (130-400); RED CELL DISTRIBUTION WIDTH CV 14.9 % (11.5-14.5); RED CELL DISTRIBUTION WIDTH SD 48.6 fL (36.4-46.3); WHITE BLOOD COUNT 7.89 K/uL (4.8-10.8)
[2018-06-01 08:44] LABS: CALCIUM 7.6 mg/dl (8.5-10.1); CREATININE 1.27 mg/dl (0.60-1.40); POTASSIUM 4.1 mmol/L (3.5-5.1)
[2018-06-01] MEDS ORDERED: LISINOPRIL 5 MG TAB PO SCH (09:00)
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
[2018-06-01 11:39] VITALS: BP 91/51; PULSE 83; TEMP 37.5; O2SAT 95
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
[2018-06-01 15:24] VITALS: BP 108/61; PULSE 83; TEMP 36.8; O2SAT 94
[2018-06-01] MEDS: OXYCODONE/ACETAMINOPHEN 5-325 TAB PO PRN (16:51)
[2018-06-01 19:25] VITALS: BP 102/62; PULSE 97; TEMP 37.4; O2SAT 92
[2018-06-01] MEDS: GABAPENTIN 600MG Q12H DOSE PO SCH (21:22)
[2018-06-01] MEDS: MoRPHine SULFATE 4 MG/ML 1 ML CARP\\VIAL IV PRN (21:25)
[2018-06-01 23:29] VITALS: BP 101/59; PULSE 83; TEMP 37.1; O2SAT 92
[2018-06-02] MEDS ORDERED: GABAPENTIN 600MG Q12H DOSE PO SCH
[2018-06-02] MEDS: D5W AND NSS 1,000 ML IV SCH ×2 (01:02→15:13)
[2018-06-02 04:08] VITALS: BP 132/72; PULSE 87; TEMP 37.7; O2SAT 91
[2018-06-02] MEDS: OXYCODONE/ACETAMINOPHEN 5-325 TAB PO PRN ×4 (04:30→22:03)
[2018-06-02 06:05] LABS: BASO % 0.1 %; BASO ABS # 0.01 K/uL (0-0.2); EOS % 2.1 %; EOS ABS # 0.17 K/uL (0-0.5); HEMATOCRIT 28.5 % (42-52); HEMOGLOBIN 9.2 g/dL (14.0-18.0); IG# 0.03 K/uL (0.00-0.02); LYMPH % 8.5 %; MEAN CELL VOLUME 88.8 fL (80-100); MEAN CORPUSCULAR HEMOGLOBIN 28.7 pg (25-34); MEAN CORPUSCULAR HGB CONC 32.3 g/dl (32-36); MONO ABS # 0.74 K/uL (0.11-0.59); NEUT % 79.9 %; NEUT ABS # 6.54 K/uL (1.4-6.5); PLATELET COUNT 111 K/uL (130-400); RED CELL DISTRIBUTION WIDTH CV 14.8 % (11.5-14.5); RED CELL DISTRIBUTION WIDTH SD 48.2 fL (36.4-46.3); WHITE BLOOD COUNT 8.19 K/uL (4.8-10.8)
[2018-06-02 06:36] LABS: CALCIUM 7.5 mg/dl (8.5-10.1); CREATININE 1.17 mg/dl (0.60-1.40); POTASSIUM 4.2 mmol/L (3.5-5.1)
[2018-06-02 07:48] VITALS: BP 107/64; PULSE 82; TEMP 37; O2SAT 92
[2018-06-02] MEDS: CARBIDOPA/LEVODOPA 25/100MG TAB PO SCH ×4 (08:06→20:02)
[2018-06-02] MEDS: ATORVASTATIN 40 MG TAB PO SCH (08:06)
[2018-06-02] MEDS: GABAPENTIN 600MG Q12H DOSE PO SCH (08:06)
[2018-06-02] MEDS: TAMSULOSIN HCL 0.4 MG CAP PO SCH (08:06)
[2018-06-02] MEDS: METOPROLOL SUCC 25MG EXT REL TAB PO SCH (08:07)
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
[2018-06-02] MEDS: MoRPHine SULFATE 4 MG/ML 1 ML CARP\\VIAL IV PRN ×3 (09:43→20:02)
[2018-06-02 11:42] VITALS: BP 136/65; PULSE 83; TEMP 37.1; O2SAT 91
[2018-06-02 15:06] VITALS: BP 140/66; PULSE 93; TEMP 36.9; O2SAT 91
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
[2018-06-02 19:36] VITALS: BP 124/67; PULSE 93; TEMP 37.2; O2SAT 92
[2018-06-02 20:00] VITALS: O2SAT 92
[2018-06-02] MEDS: CEFTRIAXONE SOD INJ 1 GM in DEXTROSE 5% ADD-VANTAGE 50ML 50 ML IV SCH (20:02)
[2018-06-02] MEDS: HEPARIN SOD 5000 UNIT/0.5 ML CARP SQ SCH (20:08)
[2018-06-03] VITALS (7 sets, daily range): BP systolic 138–162; BP diastolic 68–83; PULSE 83–103; TEMP 36.8–37.5; O2SAT 92–94
[2018-06-03] MEDS: MoRPHine SULFATE 4 MG/ML 1 ML CARP\\VIAL IV PRN ×2 (02:45→07:37)
[2018-06-03] MEDS: OXYCODONE/ACETAMINOPHEN 5-325 TAB PO PRN (05:04)
[2018-06-03] MEDS: HEPARIN SOD 5000 UNIT/0.5 ML CARP SQ SCH ×3 (05:07→21:19)
[2018-06-03 05:50] LABS: BASO % 0.4 %; BASO ABS # 0.02 K/uL (0-0.2); EOS % 3.1 %; EOS ABS # 0.17 K/uL (0-0.5); HEMATOCRIT 28.4 % (42-52); HEMOGLOBIN 9.3 g/dL (14.0-18.0); IG# 0.02 K/uL (0.00-0.02); LYMPH % 14.4 %; MEAN CELL VOLUME 88.2 fL (80-100); MEAN CORPUSCULAR HEMOGLOBIN 28.9 pg (25-34); MEAN CORPUSCULAR HGB CONC 32.7 g/dl (32-36); MEAN PLATELET VOLUME 10.4 fL (7.4-10.4); MONO % 9.7 %; MONO ABS # 0.54 K/uL (0.11-0.59); PLATELET COUNT 112 K/uL (130-400); RED CELL DISTRIBUTION WIDTH CV 14.4 % (11.5-14.5); RED CELL DISTRIBUTION WIDTH SD 46.9 fL (36.4-46.3); WHITE BLOOD COUNT 5.55 K/uL (4.8-10.8)
[2018-06-03 06:26] LABS: CALCIUM 8.1 mg/dl (8.5-10.1); CREATININE 1.03 mg/dl (0.60-1.40); POTASSIUM 4.3 mmol/L (3.5-5.1)
[2018-06-03] MEDS: CARBIDOPA/LEVODOPA 25/100MG TAB PO SCH ×4 (07:39→19:31)
[2018-06-03] MEDS: TAMSULOSIN HCL 0.4 MG CAP PO SCH (07:39)
[2018-06-03] MEDS: ATORVASTATIN 40 MG TAB PO SCH (07:39)
[2018-06-03] MEDS: METOPROLOL SUCC 25MG EXT REL TAB PO SCH (07:40)
[2018-06-03] MEDS: ACETAMINOPHEN IV 650 MG in EMPTY BAG 0 ML IV SCH ×2 (09:14→16:35)
[2018-06-03] MEDS ORDERED: LIDODERM (LIDOCAINE) PATCH 5% TD ONE (09:18)
[2018-06-03] MEDS ORDERED: DOCUSATE SODIUM/SENNA 50/8.6MG TAB PO ONE (09:18)
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
[2018-06-03] MEDS ORDERED: CYCLOBENZAPRINE HCL 5 MG TAB PO PRN (09:30)
[2018-06-03] MEDS ORDERED: GABAPENTIN 600MG X1 DOSE PO SCH ×2 (10:00→12:00)
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
[2018-06-03] MEDS: LIDODERM (LIDOCAINE) PATCH 5% TD SCH (10:47)
[2018-06-03] MEDS: HYDROmorphone INJ 0.5 MG/0.5 ML SYR IV PRN ×2 (12:17→17:25)
[2018-06-03] MEDS: OXYCODONE HCL IR 5 MG TAB (IMMEDIATE RELEASE) PO PRN ×2 (14:47→19:32)
[2018-06-03] MEDS: CEFTRIAXONE SOD INJ 1 GM in DEXTROSE 5% ADD-VANTAGE 50ML 50 ML IV SCH (18:14)
[2018-06-03] MEDS: FENTANYL 12 MCG/HR TDSY TD SCH (21:18)
[2018-06-03] MEDS: CHECK FENTANYL PATCH PLACEMENT SCH (23:51)
[2018-06-04] MEDS: OXYCODONE HCL IR 5 MG TAB (IMMEDIATE RELEASE) PO PRN ×3 (00:22→06:05)
[2018-06-04] MEDS: ACETAMINOPHEN IV 650 MG in EMPTY BAG 0 ML IV SCH ×4 (00:23→17:12)
[2018-06-04] MEDS ORDERED: HALOPERIDOL LACTATE 5 MG/ML 1 ML VIAL IM PRN (00:45)
[2018-06-04 02:26] VITALS: BP 156/81; PULSE 91; TEMP 37.4; O2SAT 92
[2018-06-04] MEDS: HEPARIN SOD 5000 UNIT/0.5 ML CARP SQ SCH ×3 (06:00→21:02)
[2018-06-04 06:23] LABS: BASO % 0.2 %; BASO ABS # 0.01 K/uL (0-0.2); EOS % 0.5 %; EOS ABS # 0.03 K/uL (0-0.5); HEMOGLOBIN 9.9 g/dL (14.0-18.0); IG# 0.04 K/uL (0.00-0.02); LYMPH % 9.6 %; LYMPH ABS # 0.61 K/uL (1.2-3.4); MEAN CELL VOLUME 86.2 fL (80-100); MEAN CORPUSCULAR HEMOGLOBIN 28.4 pg (25-34); MEAN PLATELET VOLUME 10.7 fL (7.4-10.4); MONO % 7.5 %; MONO ABS # 0.48 K/uL (0.11-0.59); NEUT % 81.6 %; PLATELET COUNT 155 K/uL (130-400); RED CELL DISTRIBUTION WIDTH CV 13.8 % (11.5-14.5); RED CELL DISTRIBUTION WIDTH SD 43.8 fL (36.4-46.3); WHITE BLOOD COUNT 6.37 K/uL (4.8-10.8)
[2018-06-04 06:49] LABS: CALCIUM 8.7 mg/dl (8.5-10.1); CREATININE 0.95 mg/dl (0.60-1.40); POTASSIUM 3.8 mmol/L (3.5-5.1)
[2018-06-04 07:38] VITALS: BP_SYST 152; PULSE 88; TEMP 37.2; O2SAT 93
[2018-06-04] MEDS: CHECK FENTANYL PATCH PLACEMENT SCH ×2 (07:59→15:44)
[2018-06-04] MEDS: LIDODERM (LIDOCAINE) PATCH 5% TD SCH (08:02)
[2018-06-04] MEDS: TAMSULOSIN HCL 0.4 MG CAP PO SCH (08:03)
[2018-06-04] MEDS: CARBIDOPA/LEVODOPA 25/100MG TAB PO SCH ×4 (08:03→21:00)
[2018-06-04] MEDS: ATORVASTATIN 40 MG TAB PO SCH (08:03)
[2018-06-04] MEDS: METOPROLOL SUCC 25MG EXT REL TAB PO SCH (08:04)
[2018-06-04] MEDS: DOCUSATE SODIUM/SENNA 50/8.6MG TAB PO SCH (08:04)
[2018-06-04] MEDS: MAGNESIUM HYDROXIDE SUSP 30 ML UDC PO PRN (08:07)
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
[2018-06-04] MEDS: TRAMADOL HCL 50 MG TAB PO PRN (10:55)
[2018-06-04 11:38] VITALS: BP 117/65; PULSE 82; TEMP 37; O2SAT 94
[2018-06-04 15:09] VITALS: BP 128/76; PULSE 87; TEMP 36.9; O2SAT 92
[2018-06-04] MEDS ORDERED: KETOROLAC TROMETHAMINE 15 MG/ML VIAL IV. ONE (15:32)
[2018-06-04] MEDS: CEFTRIAXONE SOD INJ 1 GM in DEXTROSE 5% ADD-VANTAGE 50ML 50 ML IV SCH (17:58)
[2018-06-04] MEDS ORDERED: HYDROmorphone INJ 0.5 MG/0.5 ML SYR IV PRN (19:15)
[2018-06-04 19:47] VITALS: BP 134/68; PULSE 87; TEMP 37; O2SAT 93
[2018-06-04] MEDS: KETOROLAC TROMETHAMINE 15 MG/ML VIAL IV. PRN (20:52)
[2018-06-04 23:45] VITALS: BP 143/76; PULSE 80; TEMP 36.6; O2SAT 95
[2018-06-05] VITALS (8 sets, daily range): BP systolic 117–142; BP diastolic 63–82; PULSE 70–86; TEMP 36.5–36.9; O2SAT 93–96
[2018-06-05] MEDS: CHECK FENTANYL PATCH PLACEMENT SCH ×4 (00:24→23:53)
[2018-06-05] MEDS: ACETAMINOPHEN IV 650 MG in EMPTY BAG 0 ML IV SCH ×3 (00:57→17:22)
[2018-06-05] MEDS: KETOROLAC TROMETHAMINE 15 MG/ML VIAL IV. PRN ×2 (06:33→17:23)
[2018-06-05] MEDS: HEPARIN SOD 5000 UNIT/0.5 ML CARP SQ SCH ×3 (06:37→20:57)
[2018-06-05] MEDS: LIDODERM (LIDOCAINE) PATCH 5% TD SCH (09:41)
[2018-06-05] MEDS: ATORVASTATIN 40 MG TAB PO SCH (09:42)
[2018-06-05] MEDS: METOPROLOL SUCC 25MG EXT REL TAB PO SCH (09:42)
[2018-06-05] MEDS: DOCUSATE SODIUM/SENNA 50/8.6MG TAB PO SCH (09:42)
[2018-06-05] MEDS: CARBIDOPA/LEVODOPA 25/100MG TAB PO SCH ×4 (09:42→20:21)
[2018-06-05] MEDS: TAMSULOSIN HCL 0.4 MG CAP PO SCH (09:42)
[2018-06-05] MEDS: MAGNESIUM HYDROXIDE SUSP 30 ML UDC PO PRN (09:44)
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
[2018-06-05] MEDS: TRAMADOL HCL 50 MG TAB PO PRN (20:21)
[2018-06-06] MEDS: ACETAMINOPHEN IV 650 MG in EMPTY BAG 0 ML IV SCH ×3 (01:17→17:04)
[2018-06-06 06:22] LABS: BASO % 0.3 %; BASO ABS # 0.02 K/uL (0-0.2); EOS % 6.1 %; EOS ABS # 0.44 K/uL (0-0.5); HEMATOCRIT 29.7 % (42-52); HEMOGLOBIN 9.6 g/dL (14.0-18.0); IG# 0.02 K/uL (0.00-0.02); LYMPH % 11.2 %; LYMPH ABS # 0.81 K/uL (1.2-3.4); MEAN CELL VOLUME 87.9 fL (80-100); MEAN CORPUSCULAR HEMOGLOBIN 28.4 pg (25-34); MEAN CORPUSCULAR HGB CONC 32.3 g/dl (32-36); MEAN PLATELET VOLUME 10.7 fL (7.4-10.4); MONO % 6.1 %; MONO ABS # 0.44 K/uL (0.11-0.59); NEUT ABS # 5.51 K/uL (1.4-6.5); PLATELET COUNT 194 K/uL (130-400); RED CELL DISTRIBUTION WIDTH CV 14.3 % (11.5-14.5); WHITE BLOOD COUNT 7.24 K/uL (4.8-10.8)
[2018-06-06 07:01] VITALS: BP 127/67; PULSE 76; TEMP 36.6; O2SAT 94
[2018-06-06 07:02] LABS: CALCIUM 8.1 mg/dl (8.5-10.1); CREATININE 0.93 mg/dl (0.60-1.40); POTASSIUM 4.3 mmol/L (3.5-5.1)
[2018-06-06] MEDS: CHECK FENTANYL PATCH PLACEMENT SCH ×2 (08:00→16:00)
[2018-06-06] MEDS: KETOROLAC TROMETHAMINE 15 MG/ML VIAL IV. PRN ×2 (08:31→19:35)
[2018-06-06] MEDS: TAMSULOSIN HCL 0.4 MG CAP PO SCH (08:34)
[2018-06-06] MEDS: ATORVASTATIN 40 MG TAB PO SCH (08:34)
[2018-06-06] MEDS: DOCUSATE SODIUM/SENNA 50/8.6MG TAB PO SCH (08:34)
[2018-06-06] MEDS: METOPROLOL SUCC 25MG EXT REL TAB PO SCH (08:34)
[2018-06-06] MEDS: LIDODERM (LIDOCAINE) PATCH 5% TD SCH (08:35)
[2018-06-06] MEDS: HEPARIN SOD 5000 UNIT/0.5 ML CARP SQ SCH ×3 (08:42→21:19)
[2018-06-06] MEDS: CARBIDOPA/LEVODOPA 25/100MG TAB PO SCH ×4 (09:11→21:21)
[2018-06-06 14:58] VITALS: BP 134/74; PULSE 82; TEMP 36.9; O2SAT 95
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
[2018-06-06] MEDS ORDERED: FENTANYL PATCH REMOVE & WASTE SCH (20:15)
[2018-06-06] MEDS: FENTANYL 12 MCG/HR TDSY TD SCH (21:20)
[2018-06-06 23:15] VITALS: BP 143/72; PULSE 80; TEMP 37; O2SAT 95
[2018-06-07] MEDS: CHECK FENTANYL PATCH PLACEMENT SCH ×2 (00:21→08:00)
[2018-06-07] MEDS: ACETAMINOPHEN IV 650 MG in EMPTY BAG 0 ML IV SCH ×2 (00:24→08:37)
[2018-06-07] MEDS: KETOROLAC TROMETHAMINE 15 MG/ML VIAL IV. PRN (05:47)
[2018-06-07] MEDS: HEPARIN SOD 5000 UNIT/0.5 ML CARP SQ SCH ×2 (05:56→13:44)
[2018-06-07 07:13] VITALS: BP 129/68; PULSE 75; TEMP 36.9; O2SAT 97
[2018-06-07] MEDS: TAMSULOSIN HCL 0.4 MG CAP PO SCH (08:34)
[2018-06-07] MEDS: ATORVASTATIN 40 MG TAB PO SCH (08:34)
[2018-06-07] MEDS: DOCUSATE SODIUM/SENNA 50/8.6MG TAB PO SCH (08:34)
[2018-06-07] MEDS: CARBIDOPA/LEVODOPA 25/100MG TAB PO SCH ×2 (08:34→12:32)
[2018-06-07] MEDS: LIDODERM (LIDOCAINE) PATCH 5% TD SCH (08:35)
[2018-06-07] MEDS: METOPROLOL SUCC 25MG EXT REL TAB PO SCH (08:35)
[2018-06-07] MEDS ORDERED: RASAGILINE MESYLATE 1 MG PO SCH ×2 (09:00)
[2018-06-07 10:35] VITALS: BP 129/68; PULSE 75; TEMP 36.9; O2SAT 97
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
[2018-06-07] MEDS ORDERED: IBUP-1050 PO (11:01)
[2018-06-07] MEDS ORDERED: HPRIS5M SQ (11:01)
[2018-06-07] MEDS ORDERED: SENN8.6T7 PO (11:01)
[2018-06-07] MEDS ORDERED: DRGTP12 TD (11:01)
[2018-06-07] MEDS ORDERED: LDDP5 TD (11:01)
[2018-06-07] MEDS ORDERED: FLX5 PO (11:01)
[2018-06-07] MEDS ORDERED: TPRSR25 PO (11:01)
[2018-06-07] MEDS ORDERED: ULT50X PO (11:01)
[2018-06-07] MEDS ORDERED: ACET-1047 PO (11:01)
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
[2018-06-07] MEDS: TRAMADOL HCL 50 MG TAB PO PRN (13:42)
== END 2018-06-07 15:00 | DRG 654 ==
LOC: EDBD 14:54 → C.EDC 14:56 → C.2T 18:27 → ENRESERV 18:35 → OBSVTOIN 05-31 11:18 → ENRESERV 06-05 15:58 → C.3E 06-05 16:50
PROVIDERS: ADMIT Internal Medicine; ATTEND Internal Medicine
PROC: 0TTB8ZZ Resection of Bladder, Via Natural or Artificial Opening Endoscopic (ICD-10-PCS; principal; 2018-05-31 11:15)
DX: C67.2 Malignant neoplasm of lateral wall of bladder (principal); D62 Acute posthemorrhagic anemia; S32.10XA Unspecified fracture of sacrum, initial encounter for closed fracture; V47.0XXA Car driver injured in collision with fixed or stationary object in nontraffic accident, initial encounter; R31.0 Gross hematuria; N40.0 Benign prostatic hyperplasia without lower urinary tract symptoms; I10 Essential (primary) hypertension; E78.5 Hyperlipidemia, unspecified; I35.0 Nonrheumatic aortic (valve) stenosis; G20 Parkinson's disease; Z82.49 Family history of ischemic heart disease and other diseases of the circulatory system; N32.9 Bladder disorder, unspecified; S50.02XA Contusion of left elbow, initial encounter; S40.012A Contusion of left shoulder, initial encounter; E55.9 Vitamin D deficiency, unspecified; K27.9 Peptic ulcer, site unspecified, unspecified as acute or chronic, without hemorrhage or perforation; E04.1 Nontoxic single thyroid nodule; I95.1 Orthostatic hypotension; Y92.821 Forest as the place of occurrence of the external cause